=== PATIENT | female | born 1950 | race Two or more races ===

== ENCOUNTER 2017-05-07 08:07 | Emergency (ER) | payer BC, OTHER ==
--- NOTE | 2017-05-07 08:21 | UC ---
Headache HPI - HPI Summary HPI Summary: C/O headache frontal going on 6 days with worsening since last night. Also right parietal pain with nausea and photophobia. - History Of Current Complaint Chief Complaint: UCHeadaсергей Stated Complaint: HEADACHE Time Seen by Provider: 05/07/17 08:16 Hx Obtained From: Patient Hx Last Menstrual Period: n/a ?: No Onset/Duration: Gradual Onset, Lasting Days - 6, Worse Since - last night Onset Of Symptoms: Gradual Initially Headache Was: "Worst Headache Ever" Currently Pain Is: Severe Timing: Constant Character: Throbbing Location of Headache: Frontal, Parietal Aggravating Factor(s): Bright Lights Allevating Factor(s): Nothing Associated Signs And Symptoms: Positive: Nausea, Sinus Pressure, Fever. Negative: Vomiting, Neck Pain, Neck Stiffness, Decreased LOC, Visual Changes - Risk Factors SAH Risk Factors: Negative Meningitis Risk Factors: Negative - Allergies/Home Medications Allergies/Adverse Reactions: Allergies Allergy/AdvReac Type Severity Reaction Status Date / Time No Known Allergies Allergy Verified 05/07/17 08:14 PMH/Surg Hx/FS Hx/Imm Hx Endocrine History: Hypothyroidism, Dyslipidemia - Surgical History Surgical History: None - Family History Known Family History: Negative: Cardiac Disease, Hypertension, Diabetes - Social History Occupation: Retired Lives: With Family Alcohol Use: None Substance Use Type: None Smoking Status (MU): Never Smoked Tobacco - Immunization History Most Recent Influenza Vaccination: no Review of Systems Constitutional: Fever Gastrointestinal: Nausea Neurological: Headache Is Patient Immunocompromised?: No All Other Systems Reviewed And Are Negative: Yes Physical Exam Triage Information Reviewed: Yes Appearance: Well-Nourished, Ill-Appearing, Pain Distress - significant distress Vital Signs: Initial Vital Signs Temp 100 F 05/07/17 08:11 Pulse 85 05/07/17 08:11 Resp 20 05/07/17 08:11 BP 147/78 05/07/17 08:11 Pulse Ox 97 05/07/17 08:11 Vital Signs Reviewed: Yes Eyes: Positive: Other: - Severre photophobia ENT: Positive: Pharynx normal - , AD obscurred by wax, TMs normal Neck: Positive: Nuchal Rigidity Respiratory Exam: Normal Cardiovascular Exam: Normal Musculoskeletal Exam: Normal Neurological: Positive: Alert, Fatigued Psychological Exam: Normal Skin Exam: Normal Headache Course/Dx - Differential Dx/Diagnosis Differential Diagnosis/HQI/PQRI: Meningitis, Migraine, Sinus Headache, Subarachnoid Hemorrhage Provider Diagnoses: Acute meningitis - Physician Notifications Discussed Patient Care With: Dr. Chao Time Discussed With Above Provider: 08:43 Instructed by Provider To: Transfer - By ambulance to [facility] Discharge - Discharge Plan Condition: Guarded Disposition: TRANS HIGHER LVL OF CARE FAC
[2017-05-07] MEDS ORDERED: NS 0.9% 1000 ML* 1,000 ML IV SCH (08:45)
[2017-05-07 08:49] VITALS: BP 141/84
== END 2017-05-07 09:10 | disposition short-term general hospital (02) ==
LOC: UCCORT 08:07
DX: G03.9 Meningitis, unspecified (principal); E03.9 Hypothyroidism, unspecified; E78.5 Hyperlipidemia, unspecified
CPT/HCPCS: 96360; 99213; G0463

== ENCOUNTER 2017-09-22 06:01 | Day surgery (SDC) | payer MEDICARE, BC ==
--- NOTE | 2017-09-07 06:44 | HP ---
HISTORY AND PHYSICAL: DATE OF ADMISSION/SURGERY: 09/22/17 [facility] DATE OF OFFICE VISIT: 09/05/17 SURGEON: Erin Vega MD * (DICTATED BY LUIS F LONDONO) PROCEDURE: Left knee arthroscopy with partial medial meniscectomy, possible chondroplasty, possible synovectomy. CHIEF COMPLAINT: Left knee pain. HISTORY OF PRESENT ILLNESS: Ms. Godinez is a 67-year-old female with complaints of left knee pain. An MRI confirms the medial meniscus tear. She has elected to proceed with surgery. PAST MEDICAL HISTORY: Hypothyroidism. PAST SURGICAL HISTORY: Right knee arthroscopy. CURRENT MEDICATIONS: 1. Levothyroxine daily unknown dosage. 2. Meloxicam 15 mg daily. ALLERGIES: None. FAMILY HISTORY: Denies. SOCIAL HISTORY: She is a 67-year-old female. She lives with her . She is retired. She does not smoke, use drugs, or alcohol. REVIEW OF SYSTEMS: A complete 14-point review of systems was reviewed with the patient, was positive for hypothyroidism. She denies history of DVT, PE, hepatitic C, HIV, or anesthesia problems. PHYSICAL EXAMINATION GENERAL: She is well-developed, well-nourished, in no acute distress. She is alert and oriented x3, pleasant mood and appropriate affect. VITAL SIGNS: The patient stands 5 feet 6 inches tall, weighs 145 pounds. Her blood pressure is 118/80 and her heart rate is 64. HEENT: Normocephalic, atraumatic. NECK: Supple. No palpable lymph nodes. PULMONARY: Lungs are clear to auscultation bilaterally. CARDIAC: Regular rate and rhythm. Strong S1 and S2. ABDOMEN: Soft, nontender, and nondistended. MUSCULOSKELETAL: Left lower extremity, skin is intact. There are no open wounds or abrasions. She has a mild joint effusion. She has some tenderness over the medial joint line. Positive Mando's. Positive Apley's. Negative Rsusell. 2+ dorsalis pedis pulses. She has intact sensation and her lower extremity muscle group strengths are intact at 5/5. ASSESSMENT AND PLAN: Ms. Godinez is a 67-year-old female with complaints of left knee pain. An MRI confirms the medial meniscus tear and she has elected to proceed with surgery, which is scheduled for 09/22/[address] Vega discussed the risks and benefits of the surgery at today's visit and all of her questions were answered. She will follow up with Dr. Vega 2 weeks after the surgery. LUIS F LONDONO [id number]/[facility] #: [id number] [facility]
[~2017-09-22 06:01] MED LIST: Buffered Lidocaine 0.9% SYRIN* 5 ML/SYR SYRINGE INTRADERM ONE; Dexamethasone IV* 4 MG/ML 1 ML (4 MG) IV SLOW PU ONE; Famotidine IV* 10 MG/ML 2 ML (20 mg) IV ONE
[2017-09-22] MEDS ORDERED: Buffered Lidocaine 0.9% SYRIN* 5 ML/SYR SYRINGE ONE (06:15)
[2017-09-22] MEDS ORDERED: ceFAZolin 2 GM (*##) 2 GM/100 ML BAG USE CEFA2SOL IVPB ONE (06:15)
[2017-09-22] MEDS ORDERED: Famotidine IV* 10 MG/ML 2 ML (20 mg) ONE (06:15)
[2017-09-22] MEDS ORDERED: Dexamethasone IV* 4 MG/ML 1 ML (4 MG) ONE (06:15)
[2017-09-22] MEDS ORDERED: methylPREDNISolone ACETATE 80* 80 MG/ML 1 ML VIAL ONE (06:50)
[2017-09-22] MEDS ORDERED: EPINEPHRINE 1 MG/ML 1 ML VIAL ONE (06:51)
[2017-09-22] MEDS ORDERED: Bupivacaine 0.5% SDV PF* 10-30ML VIAL ONE (06:51)
[2017-09-22] MEDS ORDERED: Midazolam* 1 MG/ML 5 ML VIAL (5 MG) ONE (07:09)
[2017-09-22] MEDS ORDERED: fentaNYL* 50 MCG/ML 2 ML VIAL (100 MCG VIAL) ONE ×4 (07:09→08:51)
[2017-09-22] MEDS ORDERED: Propofol* 10 MG/ML 20 ML BTL IV PUSH ONE (07:19)
[2017-09-22] MEDS ORDERED: Ketorolac INJ* 30 MG/ML 1 ML VIAL ONE (07:19)
[2017-09-22] MEDS ORDERED: Ondansetron INJ* 2 MG/ML VIAL ONE (07:19)
[2017-09-22] MEDS ORDERED: Lidocaine 2% PF * 5 ML VIAL ONE (07:35)
[2017-09-22] MEDS ORDERED: Naloxone* 0.4 MG/ML 1 ML VIAL IV PRN (07:53)
[2017-09-22] MEDS ORDERED: fentaNYL* 50 MCG/ML 2 ML VIAL (100 MCG VIAL) IV PRN (07:53)
[2017-09-22] MEDS ORDERED: DiMENhydriNATE IV* 50 MG/ML VIAL IV PUSH PRN (07:53)
[2017-09-22] MEDS ORDERED: Ondansetron INJ* 2 MG/ML VIAL IV PRN (07:53)
[2017-09-22] MEDS ORDERED: oxyCODONE/Acetamin 5/325 MG* TAB ONE (08:51)
[2017-09-22] MEDS: oxyCODONE/Acetamin 5/325 MG* TAB PO PRN ×2 (08:52→08:54)
[2017-09-22 09:48] VITALS: BP 111/53
--- NOTE | 2017-09-23 14:46 | OP ---
OPERATIVE NOTE: DATE OF OPERATION: 09/22/17 DATE OF : 54 ATTENDING SURGEON: Erin Vega MD [employer] ADMINISTRATOR.: LUIS F Cabezas. Ms. Garrido did help throughout the procedure with preparation of the leg, wound retraction, manipul ation of the knee, and wound closure. ANESTHESIOLOGIST: Dr. Corbett. ANESTHESIA: General. PRE-OP DIAGNOSES: Left knee pain with moderate osteoarthritis and posterior horn medial meniscal tea r. POST-OP DIAGNOSES: Left knee linear and radial tear on the posterior horn of the medial meniscus, la rge impinging medial plica, [id number] degenerative osteoarthritis on the medial and patellof emoral compartments. OPERATIVE PROCEDURE: Left knee arthroscopy with partial medial meniscectomy and medial plica excisio n. SPECIMEN: None. ESTIMATED BLOOD LOSS: Less than 25 cc. COMPLICATIONS: None. BRIEF HISTORY/INDICATION: Ms. Godinez is a 67-year-old female, who developed approximately 6 months of increasingly severe left knee pain. She felt these were mechanical symptoms consistent with meni scal tear and MRI confirmed a medial meniscal tear. Due to failure of conservative treatment to reli mai her pain, she elected to undergo left knee arthroscopy with partial medial meniscectomy, possible chondroplasty, possible synovectomy. She understood that she would continue to have some arthritis pain down the road and progression of her arthritis. She accepted this. Informed consent was obtain ed from the patient. She understood the the risks of the procedure included but were not limited to bleeding, infection, damage to nearby structures, continued pain, need for further surgery, nerve pal sy, progression of arthritis, stroke, heart attack, blood clot, and . She wished to proceed. INTRAOPERATIVE FINDINGS: Intraoperatively, the patient was noted to have a large medial plica, which did impinge the range of motion in the patellofemoral compartment. She had grade 3 and 4 Outerbridg e cartilage changes in the medial and patellofemoral compartment with exposed subchondral bone. No l arge cartilage flaps were noted. She had a large medial meniscal tear involving the posterior one-th ird of the medial meniscus. There was a linear component as well as a radial component near the root of the medial meniscus. DESCRIPTION OF PROCEDURE: Ms. Godinez was identified in the preanesthesia unit. Her left lower extr emity was marked as the correct operative site. Informed consent was signed and placed in the chart. The patient was taken to the operating room and placed under general anesthesia without difficulty. Left lower extremity was prepped and draped in the normal sterile fashion. Preop time-out was made to correctly identify the patient, side, and site. Appropriate perioperative antibiotics were given within 1 hour of incision. A 1.5-cm anterolateral portal incision was made with a 15-blade and carried down through the capsule. A trocar was introduced. As soon as light and water sources were turned on, there was immediate vi sualization of the suprapatellar pouch. A tour of the knee joint was performed. Suprapatellar pouch had no obvious abnormality. Patellofemoral compartment had exposed subchondral bone along the media l and lateral patellar facet as well as the femoral trochlear groove. This were grade 3 and 4 Outer bridge cartilage changes through the large medial plica, which impinged with range of motion. Medial gutters showed no loose body. There was small fragments of cartilage floating throughout the knee j oint. Medial compartment showed grade 3 and 4 Outerbridge cartilage changes with exposed subchondral bone along the large portion of the medial femoral condyle, weightbearing surface. Medial meniscus had a visible linear and radial tear along the posterior 50%. ACL and PCL appeared to be intact. Figure-of-4 position showed lateral meniscus to have no obvious tear. Lateral cartilage had very min imal degenerative changes. Lateral gutters showed no obvious loose body or plica. Under direct visualization, a medial portal incision was made with a 15-blade. Probe was introduced a nd a second tour of the knee joint was performed. No additional findings were noted. Shaver was use d to remove some inflammatory tissue from the anterior joint line. Next, the shaver and radiofrequen cy ablation wand were used to conservatively excise the medial plica until there was no further impin gement. A straight biter and shaver were used to perform partial medial meniscectomy in the white-red and red -red zone of the medial meniscus. A smooth border was obtained. Radiofrequency ablation wand was use d to further smooth the edges of the posterior medial meniscus. Further probing showed no additional tears or displaced fragments. The shaver was introduced in the suprapatellar pouch and the knee was copiously irrigated. Irrigatio n continued until there were no further floating cartilage fragments in the joint fluid. All instrum ents were carefully removed. The incisions were closed using 3-0 nylon suture. Intraarticular injec tion of 80 mg Depo-Medrol and 6 cc of 0.25% Marcaine was placed in the knee joint. Incisions were co diamond with sterile Xeroform, 4x4s, and Webril. Brian wrap and cold pack were placed over this. The patient's anesthesia was reversed without difficulty. She was taken to the PACU in stable condit ion. Intended weightbearing will be weightbearing as tolerated. Intended DVT prophylaxis will be as pirin. She will follow up in 2 weeks for suture removal. [id number]/[facility] #: [id number]
== END 2017-09-22 09:49 | disposition home or self-care (01) ==
LOC: OR 06:01
PROVIDERS: ATTEND Orthopaedic Surgery Adult Reconstructive Orthopaedic Surgery
DX: M23.222 Derangement of posterior horn of medial meniscus due to old tear or injury, left knee (principal); M67.52 Plica syndrome, left knee; M17.12 Unilateral primary osteoarthritis, left knee; E03.9 Hypothyroidism, unspecified
CPT/HCPCS: A9270-GY; J1040; J1100; J1885; J2250; J2405; J2704; J3010